=== PATIENT | male | born 1995 | race African-American/Black ===

== ENCOUNTER 2021-08-21 16:45 | Emergency (ER) | payer SELFPAY ==
[~2021-08-21] VITALS: Ht 195.6 cm; Wt 90.7 kg
[2021-08-21 16:50] VITALS: BP_SYST 127
--- NOTE | 2021-08-21 17:17 | NUR ---
PT COMES TO ER WITH C/O ANTERIOR CHEST WALL PAIN THAT RADIATES TO RT SIDE, INTERMITTENT, DULL SINCE THIS AM AT 1000 WHILE AT WORK. STATES HE WORKED HIS SHIFT TO SEE IF IT WENT AWAY, BUT IT DID NOT. RESP EVEN AND UNLABORED, ON RA @99%. SKIN W/D/I. PT DENIES ANY SOB.
[2021-08-21 17:24] LABS: BASOPHILS # (AUTO) 0.2 K/uL (0.0-0.2); BASOPHILS % (AUTO) 2.7 % (0.0-2.0); EOSINOPHILS # (AUTO) 0.1 K/uL (0.0-0.4); EOSINOPHILS % (AUTO) 2.1 % (0.0-4.0); HEMATOCRIT 42.8 % (36-54); HEMOGLOBIN 14.7 g/dL (14.0-18.0); LYMPHOCYTES % (AUTO) 33.1 % (20.5-51.5); MEAN CORPUSCULAR HEMOGLOBIN 31 pg (27-31); MEAN CORPUSCULAR HGB CONC 34 % (32-36); MEAN CORPUSCULAR VOLUME 91 fL (79.0-98.0); MONOCYTES # (AUTO) 0.6 K/uL (0.0-1.0); NEUTROPHILS # (AUTO) 3.2 K/uL (1.8-7.7); NEUTROPHILS % (AUTO) 52.1 % (40.0-70.0); PLATELET COUNT (AUTO) 231 K/uL (130-430); RED CELL DISTRIBUTION WIDTH 13.6 % (9.0-15.0); WHITE BLOOD COUNT (AUTO) 6.1 K/uL (4.8-10.8)
[2021-08-21 17:41] LABS: CALCIUM 8.7 mg/dL (8.4-11.0); CREATININE 0.97 mg/dL (0.55-1.30); POTASSIUM 3.6 mmol/L (3.5-5.1)
[2021-08-21 17:46] LABS: TOTAL BILIRUBIN 0.6 mg/dL (0.0-1.0)
[2021-08-21 19:09] VITALS: BP_SYST 123
--- NOTE | 2021-08-21 19:09 | NUR ---
Patient given written and verbal discharge instructions and verbalizes understanding. ER MD discussed with patient the results and treatment provided. Patient in stable condition. ID arm band removed. Rx of given. Patient educated on pain management and to follow up with PMD. Pain Scale 0. Opportunity for questions provided and answered. Medication side effect fact sheet provided.
== END 2021-08-21 19:09 | disposition home or self-care (01) ==
LOC: SED 16:45
DX: R07.89 Other chest pain (principal); F17.290 Nicotine dependence, other tobacco product, uncomplicated
CPT/HCPCS: 36415; 71045; 80053; 84484; 85025; 93005; 99285